=== PATIENT | female | born 1985 | race Hispanic/Latino ===

== ENCOUNTER 2024-06-16 10:16 | Day surgery (SDC) | payer MEDICAID ==
[2024-06-16] VITALS (13 sets, daily range): BP systolic 98–133; BP diastolic 63–84; PULSE 47–61; RESP 14–20
[~2024-06-16] VITALS: Ht 162.6 cm; Wt 107.0 kg
[2024-06-16] MEDS: 0.9%NACL 1000ML 1,000 ML IV ONE (11:33)
[2024-06-16] MEDS ORDERED: DIFLUCAN PO (11:38)
[2024-06-16] MEDS: SCOPOLAMINE HYDROBROMIDE 1 EACH ADH..PATCH TD ONE (11:46)
[2024-06-16] MEDS ORDERED: IOHEXOL-350 50ML VIAL IV ONE (11:54)
[2024-06-16] MEDS ORDERED: FENTANYL CITRATE PF 50 MCG/1 ML 2ML VIAL ONE (12:31)
[2024-06-16] MEDS ORDERED: ONDANSETRON 4MG INJ ONE (12:31)
[2024-06-16] MEDS ORDERED: MIDAZOLAM HCL 1 MG/ML 2ML VIAL ONE (12:32)
[2024-06-16] MEDS: INDOMETHACIN 100 MG SUPP.RECT RC ONE (12:49)
== END 2024-06-16 14:50 | disposition home or self-care (01) ==
LOC: DAH 10:16
PROVIDERS: ATTEND Internal Medicine Gastroenterology
DX: K80.51 Calculus of bile duct without cholangitis or cholecystitis with obstruction (principal); R10.11 Right upper quadrant pain; R93.2 Abnormal findings on diagnostic imaging of liver and biliary tract; Z98.84 Bariatric surgery status; E66.9 Obesity, unspecified; Z68.41 Body mass index [BMI] 40.0-44.9, adult; Z79.899 Other long term (current) drug therapy; Z90.49 Acquired absence of other specified parts of digestive tract
CPT/HCPCS: 43261; 74330; 43264; 43275; J3010; J7030; J2250; J2405; Q9967; A4620; A4215; A4223; A4657; A7002; A4222; C1769; C1773; 43273; 74328